=== PATIENT | female | born 1975 | race Caucasian/White ===

== ENCOUNTER 2017-02-19 10:18 | Outpatient (CLI) | payer BC ==
[2017-02-19] MEDS ORDERED: MULTIVITAMINS1 EAC2 ORAL (10:59)
[2017-02-19] MEDS ORDERED: COQ1050 MG PO (10:59)
--- NOTE | 2017-02-19 11:03 | GI Initial Consult Note ---
History of Present Illness General Date patient seen: Feb 19, 2017 Time patient seen: 10:57 Referring physician: GABE Reason for Consultation: DIVERTICULITIS Present Illness HPI 41 year old female patient referred by Dr. Valdez for evaluation of diverticulitis s/p abx tx of cipro + flagyl for 10 days. Presently denies any abdominal pain. C/o of diarrhea, abdominal bloating, black stools. Denies any unintentional weight loss or changes in dietary habits. No signs of abuse or neglect. Patient is not fall risk. No history of colonoscopy. Home Meds Reported Medications Ubidecarenone (COQ10) 50 Mg Tab.chew, 50 MG PO, TAB 02/19/17 Multivitamins* (MULTIVITAMINS*) 1 Each Tablet, 1 TAB ORAL DAILY, TAB 0 Refills 02/19/17 Med list reviewed/reconciled: Yes Allergies: Coded Allergies: No Known Allergies (Unverified , 02/19/17) Patient History History Provided By: Patient PMH Narrative Denies any past medical history. Past Surgical History: Ovarian Polypectomy Family History Narrative Family History of heart disease, HTN and thyroid. Grandmother - ?colon CA with resection Mother - Ulcerative colitis Social History: Reports: smoking - quit 1.5 years, alcohol use - social Review of Systems All Other Systems: negative except mentioned in HPI Physical Exam T 98.1 BP 119/70 P 74 100 RA 141.6 lbs Sp02 EP Interpretation: reviewed, normal General Appearance: well appearing, no apparent distress, alert Head: normocephalic EENT: PERRL/EOMI, normal ENT inspection Neck: supple Respiratory: normal breath sounds, no respiratory distress Cardiovascular: normal rate Gastrointestinal: normal inspection, non tender, soft, normal bowel sounds, non -distended Rectal: deferred Genitourinary: no CVA tenderness Musculoskeletal: normal inspection, back normal Neurologic: normal inspection, alert, oriented x3, responsive Psychiatric: normal inspection, judgement/insight normal, memory normal Skin: normal inspection, normal color, no rash, warm/dry, palpation normal, well hydrated Lymphatic: normal inspection, no adenopathy GI: Plan Problems: (1) Diverticulitis (2) Colonoscopy planned Plan Colonoscopy to be scheduled pending prior authorization, will contact patient. - CLD & (Nulytely/Suprep/Movi-Prep) prep instructions given and acknowledged by patient. - NPO @ CA day prior procedure explained. Seen with Dr. Ervin. Thank you for this patient referral. Priscilla Kirby N.P. Feb 19, 2017 11:03
== END 2017-02-19 11:00 | disposition home or self-care (01) ==
LOC: PAN 10:18
DX: K57.92 Diverticulitis of intestine, part unspecified, without perforation or abscess without bleeding (principal); Z82.49 Family history of ischemic heart disease and other diseases of the circulatory system; Z87.891 Personal history of nicotine dependence
CPT/HCPCS: 99201